=== PATIENT | male | born 1970 | race Caucasian/White ===

== ENCOUNTER 2023-03-23 16:53 | Emergency (ER) | payer BC ==
[2023-03-23 17:23] VITALS: BP 147/97; PULSE 103
[2023-03-23] MEDS ORDERED: Sodium Chloride 0.9% 1,000 ML IV SCH (17:30)
[2023-03-23] MEDS ORDERED: Ondansetron 4 MG/2 ML SDV IVPUSH ONE (17:30)
[2023-03-23] MEDS ORDERED: Sodium Chloride 0.9% 10 ML Syringe FLUSH PRN (17:30)
[2023-03-23 18:10] LABS: APPEARANCE,URINE CLEAR (Clear); BILIRUBIN,URINE NEGATIVE (Negative); COLOR,URINE YELLOW (Yellow); GLUCOSE,URINE NEGATIVE (Negative); KETONES,URINE NEGATIVE (Negative); LEUKOCYTE ESTERASE,URINE NEGATIVE (Negative); NITRITE,URINE NEGATIVE (Negative); OCCULT BLOOD,URINE NEGATIVE (Negative); PROTEIN,URINE NEGATIVE (Negative); UROBILINOGEN,URINE 0.2 (0.2-1.0)
[2023-03-23 18:14] LABS: BACTERIA,URINE RARE /hpf (FEW); EPITHELIAL CELLS,URINE 0-5 /hpf (0-5); MUCUS,URINE RARE /hpf (FEW); RBC,URINE 0-5 /hpf (0-5); WBC,URINE 0-5 /hpf (0-5)
== END 2023-03-23 18:24 | disposition home or self-care (01) ==
LOC: JD.ED 16:53
DX: R11.2 Nausea with vomiting, unspecified (principal); K52.1 Toxic gastroenteritis and colitis; T50.995A Adverse effect of other drugs, medicaments and biological substances, initial encounter; I10 Essential (primary) hypertension; E66.9 Obesity, unspecified; F17.200 Nicotine dependence, unspecified, uncomplicated; Z91.038 Other insect allergy status; Z68.41 Body mass index [BMI] 40.0-44.9, adult
CPT/HCPCS: 81001; 99283

== ENCOUNTER 2024-09-09 22:24 | Emergency (ER) | payer BC ==
[2024-09-09] MEDS: Lidocaine 1% with EPINEPHrine 1:100,000 20 ML MDV ONE (22:44)
[2024-09-09 22:45] LABS: BASOPHILS ABSOLUTE AUTO 0.1 K/mm3 (0.0-0.2); BASOPHILS PERCENT AUTO 0.8 % (0.0-1.0); EOSINOPHILS ABSOLUTE AUTO 0.3 K/mm3 (0.0-0.4); EOSINOPHILS PERCENT AUTO 1.8 % (0.0-6.0); HEMATOCRIT 39.4 % (42.0-52.0); HEMOGLOBIN 13.8 gm/dl (14.0-18.0); IMMATURE GRAN ABSOLUTE AUTO 0.05 K/mm3 (0.00-0.05); IMMATURE GRAN PERCENT AUTO 0.3 % (0.0-0.4); LYMPHOCYTES ABSOLUTE AUTO 3.1 K/mm3 (1.0-4.8); LYMPHOCYTES PERCENT AUTO 19.7 % (24.0-44.0); MEAN CORPUSCULAR HEMOGLOBIN 35.1 pg (28.0-32.0); MEAN CORPUSCULAR VOLUME 100.3 fl (83.0-99.0); MEAN PLATELET VOLUME 9.8 fl (9.4-12.4); MONOCYTES ABSOLUTE AUTO 1.5 K/mm3 (0.0-0.8); MONOCYTES PERCENT AUTO 9.2 % (0.0-8.0); NEUTROPHILS ABSOLUTE AUTO 10.8 K/mm3 (1.8-7.7); NEUTROPHILS PERCENT AUTO 68.2 % (41.0-71.0); PLATELET COUNT,PLT 325 K/mm3 (150-400); RED BLOOD CELL COUNT 3.93 M/mm3 (4.52-5.90); WHITE BLOOD CELL COUNT,WBC 15.83 K/mm3 (3.9-11.3)
[2024-09-09 23:06] LABS: A/G RATIO 0.9 (1-2); ALBUMIN 3.1 g/dl (3.4-5.0); ANION GAP 17.3 (5-15); BILIRUBIN TOTAL 0.5 mg/dL (0.2-1.0); CALCIUM 8.4 mg/dL (8.5-10.1); CREATININE 1.5 mg/dL (0.7-1.3); EST CRCL DRUG DOSING (CG) 56.78 mL/min; POTASSIUM,K 3.3 mEq/L (3.5-5.1); PROTEIN TOTAL,TP 6.5 g/dl (6.4-8.2)
[2024-09-09] MEDS: Sodium Chloride 0.9% 1,000 ML IV ONE (23:09)
[2024-09-09 23:23] LABS: INR 1.03; PROTHROMBIN TIME 10.9 SECONDS (9.7-12.0)
[2024-09-10] MEDS ORDERED: Naloxone 0.4 MG/ML SDV IVPUSH PRN ×2 (00:59→01:14)
[2024-09-10] MEDS ORDERED: Morphine 4 MG/ML Syringe IM ONE (00:59)
[2024-09-10] MEDS: Morphine 4 MG/ML Syringe IVPUSH ONE (01:15)
[2024-09-10] MEDS: cefTRIAXone 1 GM in Sodium Chloride 0.9% 50 ML IV ONE (03:23)
[2024-09-10] MEDS: Potassium Bicarbonate/Cit Ac 20 MEQ Effervescent Tab PO ONE (03:31)
[2024-09-10] MEDS: Lidocaine 1% with EPINEPHrine 1:100,000 20 ML MDV INJECT ONE (04:32)
[2024-09-10 04:41] VITALS: BP 120/79; PULSE 100
== END 2024-09-10 03:56 | disposition home or self-care (01) ==
LOC: JD.ED 22:24
DX: E11.622 Type 2 diabetes mellitus with other skin ulcer (principal); L97.819 Non-pressure chronic ulcer of other part of right lower leg with unspecified severity; I10 Essential (primary) hypertension; E66.9 Obesity, unspecified; Z79.899 Other long term (current) drug therapy; Z91.038 Other insect allergy status; Z68.41 Body mass index [BMI] 40.0-44.9, adult
CPT/HCPCS: 36415; 36430; 80053; 85025; 85610; 85730; 86850; 86900; 86901; 86922; 96361; 96365; 96375; 99284; A9270; J0696; J2270; J3490; J7030; P9016